=== PATIENT | female | born 1990 | race Two or more races ===

== ENCOUNTER 2022-12-03 15:27 | Outpatient (CLI) | payer OTHER | END 2022-12-03 16:31 | disposition home or self-care (01) | LOC: PRENATAL 15:27 | PROVIDERS: ATTEND Obstetrics & Gynecology Maternal & Fetal Medicine | DX: O35.9XX0 Maternal care for (suspected) fetal abnormality and damage, unspecified, not applicable or unspecified (principal); O35.3XX0 Maternal care for (suspected) damage to fetus from viral disease in mother, not applicable or unspecified; Z3A.21 21 weeks gestation of pregnancy ==

== ENCOUNTER 2023-03-25 12:13 | Inpatient (IN) | payer OTHER ==
[~2023-03-25] VITALS: Ht 175.3 cm; Wt 98.0 kg
[2023-03-25] MEDS ORDERED: PRENA1 CHEW TA1.4 MG PO (13:34)
[2023-03-25] MEDS ORDERED: VALACYCLOVIR500 MG (16:31)
== END 2023-03-27 12:23 | disposition home or self-care (01) | DRG 807 ==
LOC: LDR 12:13 → OB/GYN 17:32
PROVIDERS: ADMIT Obstetrics & Gynecology; ATTEND Obstetrics & Gynecology
PROC: 10E0XZZ Delivery of Products of Conception, External Approach (ICD-10-PCS; principal; 2023-03-25)
PROC: 0KQM0ZZ Repair Perineum Muscle, Open Approach (ICD-10-PCS; 2023-03-25)
PROC: 4A1HXCZ Monitoring of Products of Conception, Cardiac Rate, External Approach (ICD-10-PCS; 2023-03-25)
DX: O70.1 Second degree perineal laceration during delivery (principal); O42.12 Full-term premature rupture of membranes, onset of labor more than 24 hours following rupture; Z3A.37 37 weeks gestation of pregnancy; Z37.0 Single live birth; Z20.822 Contact with and (suspected) exposure to COVID-19

== ENCOUNTER 2024-06-10 08:27 | Outpatient (CLI) | payer OTHER ==
[~2024-06-10 08:27] MED LIST: PRENA1 CHEW TA1.4 MG PO; VALACYCLOVIR500 MG
== END 2024-06-10 08:28 | disposition home or self-care (01) ==
LOC: PRENATAL 08:27
PROVIDERS: ATTEND Obstetrics & Gynecology Maternal & Fetal Medicine
DX: O44.00 Complete placenta previa NOS or without hemorrhage, unspecified trimester (principal); Z3A.22 22 weeks gestation of pregnancy

== ENCOUNTER 2024-09-23 06:52 | Inpatient (IN) | payer OTHER ==
[2024-09-23] VITALS (8 sets, daily range): BP systolic 125–141; BP diastolic 65–85
[~2024-09-23] VITALS: Ht 175.3 cm; Wt 102.1 kg
[2024-09-23 08:46] LABS: HEMATOCRIT 40.3 % (36.0-45.00); HEMOGLOBIN 13.7 g/dL (12.0-15.00); MEAN CELL VOLUME 92.4 fL (80.00-100.00); MEAN CORPUSCULAR HEMOGLOBIN 31.3 pg (27.00-32.0); MEAN CORPUSCULAR HGB CONC 33.9 g/dl (32.0-36.0); PLATELET COUNT 214 K/uL (150-450); RED BLOOD COUNT 4.36 M/uL (4.00-6.00); RED CELL DISTRIBUTION WIDTH 13.1 % (11.5-14.5); URINE APPEARANCE Cloudy; URINE BILIRRUBIN Negative (NEGATIVE); URINE BLOOD Negative; URINE COLOR Yellow; URINE GLUCOSE Negative (NEGATIVE); URINE KETONE Negative (NEGATIVE); URINE LEUKOCYTE Negative; URINE NITRATE Negative; URINE PROTEIN 30 (NEGATIVE); URINE UROBILINOGEN 0.2 E.U./dl
[2024-09-23 08:50] LABS: URINE BACTERIA 1079.3 uL (0.0-1933); URINE EPITHELIAL CELLS 28.3 uL (0.0-38.8); URINE RBC 3.2 uL (0.0-20.8); URINE WBC 27.5 uL (0.0-23.2)
[2024-09-23 09:12] LABS: INR < 0.93; PARTIAL THROMBOPLASTIN TIME 26.9 SECONDS (22.0-34.0)
[2024-09-23 09:16] LABS: URINE CAST 0.73 uL (0.0-1.40)
[2024-09-23] MEDS ORDERED: OXYTOCIN 500 ML IV SCH (10:00)
[2024-09-23] MEDS ORDERED: RINGERS SOLUTION,LACTATED 1,000 ML IV SCH (10:00)
[2024-09-23 10:02] LABS: ALBUMIN 2.6 gm/dL (3.4-5.0); BILIRUBIN TOTAL 0.41 mg/dL (0.3-1.2); CALCIUM 9.2 mg/dL (8.5-10.1); CREATININE SERUM 0.6 mg/dL (0.55-1.02); GFR 115.85; POTASSIUM 4.03 mEq/L (3.5-5.1); TOTAL PROTEIN 5.6 gm/dL (6.4-8.2)
[2024-09-23] MEDS ORDERED: OXYTOCIN 20 UNITS/1000ML RL PIGGYBAG IV ONE (12:38)
[2024-09-23] MEDS ORDERED: ERYTHROMYCIN BASE OPHT 1GM EACH TUBE OP ONE ×2 (12:38→13:45)
[2024-09-23] MEDS ORDERED: LIDOCAINE HCL 1% 10ML VIAL ONE (12:38)
[2024-09-23] MEDS ORDERED: CHLORHEXIDINE GLUCONATE 120 ML BOTTLE TOP ONE ×2 (12:38→13:45)
[2024-09-23] MEDS ORDERED: LIDOCAINE HCL 1% 10ML VIAL IJ ONE (13:45)
[2024-09-23] MEDS ORDERED: OXYTOCIN 1,000 ML IV SCH (13:45)
[2024-09-23] MEDS ORDERED: IBUprofen 400 MG TABLET PO PRN (14:00)
[2024-09-23] MEDS ORDERED: ACETAMINOPHEN 500 MG GEL..CAP PO PRN (14:00)
[2024-09-23] MEDS ORDERED: CHLORHEXIDINE GLUCONATE 120 ML BOTTLE TOP SCH (14:00)
[2024-09-23] MEDS ORDERED: DOCUSATE SODIUM 100MG CAP PO SCH (17:00)
[2024-09-23] MEDS ORDERED: BENZOCAINE/MENTHOL 90 ML BOTTLE TOP SCH (18:00)
[2024-09-24 04:31] VITALS: BP 120/76
[2024-09-24 07:28] VITALS: BP 107/69; O2SAT 100
[2024-09-24 12:01] VITALS: BP 131/84
[2024-09-24 14:28] VITALS: BP 130/88
[2024-09-24 17:39] VITALS: BP 140/89
[2024-09-25] VITALS: BP 111/71
[2024-09-25 08:19] VITALS: BP 130/80
[2024-09-25 16:00] VITALS: BP 145/80
[2024-09-26 00:37] VITALS: BP 147/92
[2024-09-26 05:06] VITALS: BP 135/84
[2024-09-26 08:00] VITALS: BP 141/80
== END 2024-09-26 15:00 | disposition home or self-care (01) | DRG 807 ==
LOC: LDR 06:52 → OB/GYN 15:48 → LDR 16:51 → OB/GYN 09-24 12:31
PROVIDERS: ADMIT Obstetrics & Gynecology; ATTEND Obstetrics & Gynecology
PROC: 4A1HXCZ Monitoring of Products of Conception, Cardiac Rate, External Approach (ICD-10-PCS; 2024-09-23)
PROC: 10E0XZZ Delivery of Products of Conception, External Approach (ICD-10-PCS; principal; 2024-09-24)
PROC: 0KQM0ZZ Repair Perineum Muscle, Open Approach (ICD-10-PCS; 2024-09-24)
DX: O70.1 Second degree perineal laceration during delivery (principal); Z37.0 Single live birth; Z3A.37 37 weeks gestation of pregnancy